=== PATIENT | female | born 1965 | race Caucasian/White ===

== ENCOUNTER 2024-11-21 12:54 | Emergency (ER) | payer MEDICAID, SELFPAY ==
[2024-11-21 13:53] VITALS: BP 148/81; PULSE 87; RESP 18; TEMP 36.9; O2SAT 99; BMI 34.0
--- NOTE | 2024-11-21 14:01 | XR_ITS ---
Examination: CT cervical spine without contrast 2-D sagittal reconstructions 2-D coronal reconstructions 3-D reconstructions. Exam date and time:November 21, 2024 1457 hours INDICATIONS: Neck pain beginning 2 weeks ago CTDI:vol (mGy) 15.2 DLP: (mGycm) 326 Technique: Multiple 2 mm axial sections of the cervical spine have been obtained. The coronal and sagittal reconstructions have been obtained. 3-D reconstructions have been obtained. Low dose protocols were performed. One or more of the following dose reduction techniques were used; automated exposure control, adjustment of the mA and/or KV according to patient size, use of iterative reconstruction technique. Findings: Axial sections demonstrate intact base of the skull. C1 exhibit satisfactory relationship to the odontoid. No acute cervical vertebral body fracture seen. Alignment posterior spinous processes satisfactory. C4-C5 moderate right neural foraminal stenosis C5-C6 moderate disc narrowing with moderate bilateral neural foraminal stenosis Impression: No acute cervical fracture. Moderate degenerative disc disease C5-C6 with moderate bilateral neural foraminal stenosis C4-C5 moderate right neural foraminal stenosis Consider elective MRI cervical spine without contrast follow-up
[2024-11-21] MEDS: HYDROcodone/APAP 5/325 TABLET 1 TAB PO (14:09)
[2024-11-21] MEDS: IBUPROFEN TAB 400 MG TABLET 800 MG PO (14:09)
--- NOTE | 2024-11-21 15:39 | EDNOTE_ITS ---
ED Neck Injury Pain RME/HPI General Chief Complaint: Neck Pain/Injury Stated Complaint: NECK PAIN Time Seen by Provider: 11/21/24 14:01 Arrival date/time: 11/21/24 12:54 59-year-old female presents to the emergency department complains of neck pain patient eports no direct trauma reports pain is worse with movement reports stiffness. Patient reports no fever nausea or vomiting Limitations: no limitations Related Data Previous Rx's ?Medication ?Instructions ?Recorded Phenazopyridine * (PYRIDIUM *) 200 mg PO TIDPC #6 tabs 05/25/17 Sulfamethoxazole/Trimethoprim DS * 1 tab PO BID #14 ta bs 05/25/17 (BACTRIM DS *) doxycycline monohydrate 100 mg 100 mg PO BID #20 caps 01/25/19 capsule ibuprofen 600 mg tablet (IBU) 600 mg PO QID PRN pain # 30 tabs 01/25/19 metronidazole 500 mg tablet 500 mg PO Q8H #30 tabs (Flagyl) cyclobenzaprine 10 mg tablet 10 mg PO TID PRN muscle s pasm 10 11/21/24 days #30 tab-caps hydrocodone 5 mg-acetaminophen 325 1 tab PO BID PRN pa in #10 tabs 11/21/24 mg tablet ibuprofen 800 mg tablet 800 mg PO TID PRN pain #30 t abs 11/21/24 Allergies Allergy/AdvReac Type Severity Reaction Status Date / Time amoxicillin Allergy Intermediate Rash Verified 11/21/24 12:56 ampicillin Allergy Intermediate Rash Verified 11/21/24 12:56 Penicillins Allergy Intermediate Rash Verified 11/21/24 12:56 Review of Systems Review of Systems Systems Reviewed: All systems reviewed, normal except as documented Constitutional Constitutional: Reports system reviewed and no additional complaints, except as documented, Denies fever(s) and Denies headache(s) Eyes Eyes: Reports system reviewed and no additional complaints, except as documented and Denies blurry vision ENT Ears, Nose, Mouth, and Throat: Reports system reviewed and no additional complaints, except as documented, Denies headache(s), Denies nasal congestion, Denies nasal discharge and Reports neck pain Cardiovascular Cardiovascular: Reports system reviewed and no additional complaints, except as documented, Denies chest pain and Denies dyspnea Respiratory Respiratory: Reports system reviewed and no additional complaints, except as documented, Denies chest congestion, Denies cough and Denies dyspnea Gastrointestinal Gastrointestinal: Reports system reviewed and no additional complaints, except as documented and Denies abdominal pain Musculoskeletal Musculoskeletal: Reports system reviewed and no additional complaints, except as documented, Denies arthralgias, Denies deformity, Denies joint swelling, Reports neck pain, Denies numbness, Reports stiffness and Denies tingling Integumentary/Breasts Skin/Breast: Reports system reviewed and no additional complaints, except as documented and Denies rash Neurologic Neurologic: Reports system reviewed and no additional complaints, except as documented, Reports as per HPI, Denies headache(s), Denies numbness and Denies tingling Past Medical History Past Medical History CARDIAC: Negative Congestive Heart Failure RESPIRATORY: Negative Chronic Obstructive Pulmonary Disease (COPD) GENITOURINARY: Negative Renal Disease ENDOCRINE: Negative Diabetes Mellitus Type 1 or Diabetes Mellitus Type 2 Social History SMOKING STATUS: Current every day smoker ED Exam General Limitations: Present no limitations General appearance: Present alert and in no apparent distress Head Head exam: Present atraumatic, normocephalic and normal inspection Eye Eye exam: Present normal appearance, PERRL and EOMI; Absent conjunctival injection ENT ENT exam: Present normal exam, normal oropharynx and mucous membranes moist Neck Neck exam: Present normal inspection, full ROM and tenderness Chest Chest inspection: Present normal inspection and symmetric chest wall rise Respiratory Respiratory exam: Present normal lung sounds bilaterally Cardiovascular Cardiovascular exam: Present regular rate, normal rhythm and normal heart sounds Abdominal Exam Abdominal exam: Present soft and normal bowel sounds; Absent distention or tenderness Extremities Exam Extremities exam: Present normal inspection and full ROM; Absent tenderness Back Exam Back exam: Present normal inspection and full ROM Neurological Exam Neurological exam: Present alert, oriented X3, CN II-XII intact, normal gait and reflexes normal; Absent motor sensory deficit Psychiatric Psychiatric exam: Present normal affect and normal mood Skin Skin exam: Present warm, dry, intact and normal color; Absent rash Course Quality Measures none Orders Category Date Time Status CT cervical spine wo con Stat Exams 11/21/24 14:01 Completed HYDROcodone*/APAP 5/325 [[place] 5/325] Med 11/21/24 14:01 Discontinued 1 tab PO X1 ONE Ibuprofen Tab [Motrin Tab] Med 11/21/24 14:02 Discontinued 800 mg PO X1 ONE Vital Signs Vital signs: Vital Signs Temperature 98.5 F 11/21/24 13:53 Pulse Rate 87 11/21/24 13:53 Respiratory Rate 18 11/21/24 13:53 Blood Pressure 148/81 H 11/21/24 13:53 Pulse Oximetry (%) 99 11/21/24 13:53 Oxygen Delivery Method Room Air 11/21/24 13:53 O2 saturation 99% room air within normal limits Neck Pain MDM Narrative MDM Narrative:: 59-year-old female presents to the emergency department complains of neck pain patient eports no direct trauma reports pain is worse with movement reports stiffness. Patient reports no fever nausea or vomiting On exam patient well-appearing patient does not appear ill or toxic in no acute distress Imaging obtained patient does have chronic changes no acute emergent findings noted Patient given medicine here and discharged home with pain meds patient given copy of her CT report to bring to her primary care doctor and request outpatient MRI Patient discharged home in no distress to follow-up with primary care doctor in the next 24 to 48 hours and for any worsening symptoms to return to the ER immediately Patient data External records reviewed:: [facility] previous records Clinical information provided by:: patient Social determinants that could affect healthcare access:: none Patient has the following chronic illnesses:: See history How is presenting disease/condition affected by chronic disease/condition?: caused by Evaluation data The following diagnostics were reviewed and interpreted by me:: radiology exam(s) Lab and/or radiology exams considered but not ordered:: Radiology obtain Interpretation Summary: Reviewed by me Medications / Prescriptions Medications or Prescriptions considered but not ordered:: Given Medication administrations:: Medication Administration History Discontinued Medications Hydrocodone Bitart/Acetaminophen (Hydrocodone/Apap 5/325 Tablet) 1 tab PO X1 ONE Stop: 11/21/24 14:02 Last Admin: 11/21/24 14:09 Dose: 1 tab Documented By: LATA Ibuprofen (Ibuprofen Tab 400 Mg Tablet) 800 mg PO X1 ONE Stop: 11/21/24 14:03 Last Admin: 11/21/24 14:09 Dose: 800 mg Documented By: LATA Given Consultations Consultation(s) initiated? (list below): No Diagnosis Neck Differential Diagnosis: disc disorder of cervical region, whiplash injury to neck and other (Neck pain) Most likely diagnosis given after review of the tests above:: Degenerative disc disease, neck pain, arthritis Admission Indicated Admission indicated?: not indicated Admission Request Was there a request for admission?: No Disposition Plan Disposition Plan: Discharge Discharge Attestation Discharge Attestation: The patient and all family members were given an opportunity to ask questions and understood the discharge instructions. Discharge instructions specifically effects, indications for sooner follow up or return to the emergency department, and the expected course of current diagnosis. Patient condition: Stable Discharge Plan Plan Patient Disposition: HOME (Self Care) Disposition Comment: Stable Prescriptions/Referrals Prescriptions/Med Rec: New cyclobenzaprine 10 mg tablet 10 mg PO TID PRN (Reason: muscle spasm) 10 Days Qty: 30 0RF ibuprofen 800 mg tablet 800 mg PO TID PRN (Reason: pain) Qty: 30 0RF hydrocodone-acetaminophen 5-325 mg tablet 1 tab PO BID MDD 10 PRN (Reason: pain) Qty: 10 0RF No Action Phenazopyridine * (PYRIDIUM *) 200 MG tablet 200 mg PO TIDPC Qty: 6 0RF Sulfamethoxazole/Trimethoprim DS * (BACTRIM DS *) 1 TAB tablet 1 tab PO BID Qty: 14 0RF doxycycline monohydrate 100 mg capsule 100 mg PO BID Qty: 20 0RF metronidazole [Flagyl] 500 mg tablet 500 mg PO Q8H Qty: 30 0RF ibuprofen [IBU] 600 mg tablet 600 mg PO QID PRN (Reason: pain) Qty: 30 0RF Referrals: No Primary/Family,Physician [Primary Care Provider] - 11/22/24 Problem List Clinical Impression: Acute neck pain Patient/Caregiver Discharge Instructions Education Materials: ED Degenerative Disk Disease, ED Neck Pain Additional Instructions: Please follow up with your primary care doctor in the next 24-48hrs for any worsening symptoms return here immediately Please see your primary care doctor and or get an outpatient MRI for worsening symptoms return immediately Print Language: Kenyan Stand Alone Forms: [facility] Award Info., Patient Portal Info Letter PA/MANAGER OF ADMINISTRATION Supervising Physician PA/MANAGER OF ADMINISTRATION Supervising Physician: Dr Frost
== END 2024-11-21 16:01 | disposition home or self-care (01) ==
PROVIDERS: Emergency Provider Emergency Medicine
DX: M54.2 Cervicalgia (principal)
CPT/HCPCS: 72125; 99284; A9270

== ENCOUNTER 2025-05-29 11:12 | Emergency (ER) | payer MEDICAID, SELFPAY ==
[2025-05-29 11:22] VITALS: BP 158/81; PULSE 101; RESP 20; TEMP 36.3; O2SAT 97; BMI 35.4
--- NOTE | 2025-05-29 11:30 | PD.EDANIML ---
ED Animal Bite RME/HPI General Chief Complaint: Animal Bite Stated Complaint: SPIDER BITE ON LOWER BACK 4 DAYS AGO Time Seen by Provider: 05/29/25 11:23 Source: patient Arrival date/time: 05/29/25 11:12 59-year-old female with no known medical history presents to the emergency room with a chief complaint of a spider bite to her lower back x 4 days Mode of arrival: ambulatory Limitations: no limitations Related Data Previous Rx's ?Medication ?Instructions ?Recorded Phenazopyridine * (PYRIDIUM *) 200 mg PO TIDPC #6 tabs 05/25/17 Sulfamethoxazole/Trimethoprim DS * 1 tab PO BID #14 tabs 05/25/17 (BACTRIM DS *) doxycycline monohydrate 100 mg 100 mg PO BID #20 caps 01/25/19 capsule ibuprofen 600 mg tablet (IBU) 600 mg PO QID PRN pain #30 tabs 01/25/19 metronidazole 500 mg tablet 500 mg PO Q8H #30 tabs 01/25/19 (Flagyl) hydrocodone 5 mg-acetaminophen 325 1 tab PO BID PRN pain #10 tabs 25 mg tablet ibuprofen 800 mg tablet 800 mg PO TID PRN pain #30 tabs 11/21/24 sulfamethoxazole 800 1 tab PO BID #14 tabs 05/29/25 mg-trimethoprim 160 mg tablet (Bactrim DS) Allergies Allergy/AdvReac Type Severity Reaction Status Date / Time amoxicillin Allergy Intermediate Rash Verified 05/29/25 11:14 ampicillin Allergy Intermediate Rash Verified 05/29/25 11:14 Penicillins Allergy Intermediate Rash Verified 05/29/25 11:14 Review of Systems Review of Systems Systems Reviewed: All systems reviewed, normal except as documented Constitutional Constitutional: Reports system reviewed and no additional complaints, except as documented, Denies fatigue, Denies fever(s), Denies headache(s) and Denies weakness Eyes Eyes: Reports system reviewed and no additional complaints, except as documented, Denies blurry vision and Denies change in vision ENT Ears, Nose, Mouth, and Throat: Reports system reviewed and no additional complaints, except as documented, Denies otalgia, Denies headache(s), Denies nasal congestion, Denies throat swelling and Denies vertigo Cardiovascular Cardiovascular: Reports system reviewed and no additional complaints, except as documented, Denies chest pain, Denies dyspnea and Denies dyspnea on exertion Respiratory Respiratory: Reports system reviewed and no additional complaints, except as documented, Denies chest congestion, Denies cough, Denies dyspnea, Denies dyspnea on exertion and Denies wheezing Gastrointestinal Gastrointestinal: Reports system reviewed and no additional complaints, except as documented, Denies abdominal pain, Denies cramping, Denies nausea and Denies vomiting Genitourinary Genitourinary: Reports system reviewed and no additional complaints, except as documented Musculoskeletal Musculoskeletal: Reports system reviewed and no additional complaints, except as documented and Denies back pain Integumentary/Breasts Skin/Breast: Reports system reviewed and no additional complaints, except as documented, Reports pruritus, Reports rash and Reports wounds Neurologic Neurologic: Reports system reviewed and no additional complaints, except as documented, Denies confusion, Denies headache(s), Denies lack of coordination, Denies vertigo and Denies weakness Psychiatric Psychiatric: Reports system reviewed and no additional complaints, except as documented, Denies anxiety, Denies confusion, Denies depression, Denies paranoia, Denies suicidal ideation and Denies tactile hallucinations Endocrine Endocrine: Reports system reviewed and no additional complaints, except as documented and Denies fatigue Hematologic/Lymphatic Hematologic/Lymphatic: Reports system reviewed and no additional complaints, except as documented and Denies lymphadenopathy Allergic/Immunologic Allergic/Immunologic: Reports system reviewed and no additional complaints, except as documented, Denies throat swelling, Denies urticaria and Denies wheezing Past Medical History Past Medical History CARDIAC: Negative Congestive Heart Failure RESPIRATORY: Negative Chronic Obstructive Pulmonary Disease (COPD) GENITOURINARY: Negative Renal Disease ENDOCRINE: Negative Diabetes Mellitus Type 1 or Diabetes Mellitus Type 2 Social History SMOKING STATUS: Current every day smoker ED Exam General Limitations: Present no limitations General appearance: Present alert and in no apparent distress Head Head exam: Present atraumatic Eye Eye exam: Present normal appearance, PERRL and EOMI ENT ENT exam: Present normal exam, normal oropharynx and mucous membranes moist Neck Neck exam: Present normal inspection, full ROM and trachea midline Chest Chest inspection: Present normal inspection and symmetric chest wall rise Respiratory Respiratory exam: Present normal lung sounds bilaterally Cardiovascular Cardiovascular exam: Present regular rate, normal rhythm and normal heart sounds Abdominal Exam Abdominal exam: Present soft and normal bowel sounds Extremities Exam Extremities exam: Present normal inspection and full ROM Back Exam Back exam: Present normal inspection, full ROM and other Back 1 view image:  1. 1 cm area of erythema. Patient states it was from a spider bite Neurological Exam Neurological exam: Present alert, oriented X3 and CN II-XII intact Psychiatric Psychiatric exam: Present normal affect and normal mood Skin Skin exam: Present warm, dry, intact and normal color Course Quality Measures none Orders Category Date Time Status Clindamycin Vial [Cleocin vial] Med 05/29/25 11:26 Discontinued 600 mg IM X1 ONE Vital Signs Vital signs: Vital Signs Temperature 97.4 F 05/29/25 11:22 Pulse Rate 101 H 05/29/25 11:22 Respiratory Rate 20 05/29/25 11:22 Blood Pressure 158/81 H 05/29/25 11:22 Pulse Oximetry (%) 97 05/29/25 11:22 Oxygen Delivery Method Room Air 05/29/25 11:22 Animal Bite MDM Narrative MDM Narrative:: 59-year-old female with no known medical history presents to the emergency room with a chief complaint of a spider bite to her lower back x 4 days Patient is hemodynamically stable and in no apparent distress. She is not febrile not tachycardic not tachypneic Physical examination shows a small 1 cm area of erythema to the lumbar area of the patient's back. This is not an abscess that needs to be drained at the moment. It is erythemic and appears that the patient has been picking at it. Antibiotics are sent to the patient's pharmacy patient was given strict return precautions for any evidence of worsening signs or symptoms Patient was discharged and educated to follow-up with primary care provider in the next 24 to 48 hours and return to the emergency room for any evidence of worsening signs or symptoms Patient data External records reviewed:: [facility] previous records Clinical information provided by:: patient Social determinants that could affect healthcare access:: none Patient has the following chronic illnesses:: No chronic illness How is presenting disease/condition affected by chronic disease/condition?: no chronic disease Evaluation data The following diagnostics were reviewed and interpreted by me:: lab results and radiology exam(s) Lab and/or radiology exams considered but not ordered:: Labs and radiology exams considered and ordered okay Interpretation Summary: N/A Medications / Prescriptions Medications or Prescriptions considered but not ordered:: Medication given Medication administrations:: Medication Administration History Discontinued Medications Clindamycin Phosphate (Clindamycin Phos Inj 150 Mg/Ml Vial 6 Ml) 600 mg IM X1 ONE Stop: 05/29/25 11:27 Medication given Consultations Consultation(s) initiated? (list below): No Diagnosis Differential diagnosis animal bite: bite by animal, cat bite, dog bite and other (Cellulitis) Most likely diagnosis given after review of the tests above:: Cellulitis Admission Indicated Admission indicated?: not indicated Admission Request Was there a request for admission?: No Disposition Plan Disposition Plan: Discharge Discharge Attestation Discharge Attestation: The patient and all family members were given an opportunity to ask questions and understood the discharge instructions. Discharge instructions specifically effects, indications for sooner follow up or return to the emergency department, and the expected course of current diagnosis. Patient condition: Stable Discharge Plan Plan Patient Disposition: HOME (Self Care) Discharge Disposition comment: Stable Prescriptions/Referrals Prescriptions/Med Rec: New sulfamethoxazole-trimethoprim [Bactrim DS] 800-160 mg tablet 1 tab PO BID Qty: 14 0RF No Action Phenazopyridine * (PYRIDIUM *) 200 MG tablet 200 mg PO TIDPC Qty: 6 0RF Sulfamethoxazole/Trimethoprim DS * (BACTRIM DS *) 1 TAB tablet 1 tab PO BID Qty: 14 0RF doxycycline monohydrate 100 mg capsule 100 mg PO BID Qty: 20 0RF metronidazole [Flagyl] 500 mg tablet 500 mg PO Q8H Qty: 30 0RF ibuprofen [IBU] 600 mg tablet 600 mg PO QID PRN (Reason: pain) Qty: 30 0RF ibuprofen 800 mg tablet 800 mg PO TID PRN (Reason: pain) Qty: 30 0RF hydrocodone-acetaminophen 5-325 mg tablet 1 tab PO BID MDD 10 PRN (Reason: pain) Qty: 10 0RF Problem List Clinical Impression: Cellulitis of back, Insect bite Patient/Caregiver Discharge Instructions Education Materials: ED Cellulitis, ED Insect Bite Additional Instructions: Please follow-up with your primary care provider in the next 24 to 48 hours Antibiotics were sent to your pharmacy please pick them up and take them as indicated For any evidence of worsening signs or symptoms return to emergency room immediately Print Language: Azeri Stand Alone Forms: [facility] Award Info., Work/School Release, Patient Portal Info Letter PA/ABEL Supervising Physician ACE/ABEL Supervising Physician: Dr. Jaimes
[2025-05-29] MEDS: CLINDAMYCIN PHOS INJ 150 MG/ML VIAL 6 ML 600 MG IM (11:54)
== END 2025-05-29 12:24 | disposition home or self-care (01) ==
PROVIDERS: Emergency Provider Family Medicine; PCP Nurse Practitioner Family
DX: S30.860A Insect bite (nonvenomous) of lower back and pelvis, initial encounter (principal); L03.312 Cellulitis of back [any part except buttock and flank]; W57.XXXA Bitten or stung by nonvenomous insect and other nonvenomous arthropods, initial encounter
CPT/HCPCS: 96372; 99283; J0736